=== PATIENT | female | born 1945 | race Hispanic/Latino ===

== ENCOUNTER 2017-03-23 09:50 | Inpatient (IN) | payer MEDICARE, MEDICAID ==
--- NOTE | 2017-03-23 10:36 | CT ---
CT BRAIN NONCONTRAST: HISTORY: A 71-year-old female with left lower extremity weakness and left upper extremity hypesthesia. FINDINGS: There is no midline shift or any other mass effect. There is no evidence of acute intracranial hemor rhage, large cortical infarct, obstructive hydrocephalus, or extraaxial fluid collection. The calvar ium is intact. There is a well-circumscribed, approximately 2 x 1.5 cm cystic structure at the infer ior aspect of the left basal ganglia, consistent with a dilated Virchow-Michael perivascular space. IMPRESSION: No acute intracranial findings. daniel mon POS: FITO
[2017-03-23 10:41] LABS: #Basophils 0.1 thou/uL (0.0-0.2); #Eosinphils 0.2 thou/uL (0.0-0.7); #Lymphocytes 1.8 thou/uL (1.20-3.40); #Monocytes 0.4 thou/uL (0.11-0.59); #Neutrophils 2.9 thou/uL (1.40-6.50); %Eosinophils 3.1 % (0.0-10.0); %Lymphocytes 33.3 % (21.0-51.0); %Monocytes 7.4 % (0.0-10.0); Hematocrit 44.3 % (36.0-47.0); Mean Platelet Volume 6.5 fL (7.4-10.4); Red Blood Cell (RBC) Count 4.53 mill/uL (4.20-5.40); White Blood Cell (WBC) Count 5.3 thou/uL (4.8-10.8)
[2017-03-23 10:48] LABS: Prothrombin Time 12.9 SEC (12.0-14.7)
[2017-03-23 11:03] LABS: ALT (SGPT) 12 U/L (8-55); AST (SGOT) 12 U/L (5-34); Alkaline Phosphatase 77 U/L (40-150); Anion Gap 11 mmol/L (10-20); BUN (Urea Nitrogen) 18 mg/dL (9.8-20.1); Bilirubin, Total 0.5 mg/dL (0.2-1.2); Calc. Creatinine Clearance 0 mL/min (70-130); Calcium 9.5 mg/dL (7.8-10.44); Carbon Dioxide 27 mmol/L (23-31); Chloride 105 mmol/L (98-107); Estimated GFR-MDRD 73; Globulin 3.5 g/dL (2.4-3.5); Protein, Total 7.7 g/dL (6.0-8.3)
[2017-03-23 11:07] LABS: Troponin I Less than 0.010 ng/mL (< 0.028)
--- NOTE | 2017-03-23 11:08 | RAD ---
RADIOGRAPH CHEST 1 VIEW: HISTORY: A 71-year-old female with weakness for 2 days. FINDINGS: The thoracic aorta is tortuous and ectatic. There is no evidence of air space density, pneumothorax, or pulmonary edema. The lateral costophrenic angles are sharp. IMPRESSION: 1) No acute pulmonary findings. 2) Ectasia of thoracic aorta. daniel [] POS: REBECA
[2017-03-23] MEDS ORDERED: Dextrose 50% Abboject 50 ML SYRINGE SLOW IVP PRN (14:40)
[2017-03-23] MEDS ORDERED: Dextrose 5% in Water 1,000 ML IV PRN (14:40)
[2017-03-23] MEDS ORDERED: Calcium Carbonate 500 MG ChewTAB PO PRN (14:40)
[2017-03-23] MEDS ORDERED: hydrALAZINE 20 MG/ML VIAL SLOW IVP PRN (14:40)
[2017-03-23] MEDS ORDERED: HYDROcodone/Acetaminophen 5/325 mg Tablet PO PRN (14:40)
[2017-03-23] MEDS ORDERED: Ondansetron HCl/PF 4 MG/2 ML Vial IVP PRN (14:40)
--- NOTE | 2017-03-23 14:56 | MRI ---
MRI CERVICAL SPINE NONCONTRAST: DATE: 03/23/17. HISTORY: A 71-year-old female with bilateral lower extremity weakness and hypesthesia of the left hand and dig its (left cervical radiculopathy). COMPARISON: None. FINDINGS: All of the images are degraded by patient motion. Many sequences were repeated, but there is motion artifact on the repeated sequences also. There is no Chiari-I malformation. The cervical spinal can al is diffusely small on a developmental basis due to congenitally short pedicles. This is exacerbat ed by mild degenerative changes. Vertebral body heights are maintained. Bone marrow signal is hermilo l. The cervical spinal cord is normal in size and signal. No severe disk space narrowing at any lev el. There is mild disk space narrowing at C5-6. The rest of the disk spaces are maintained. Modera te degenerative facet changes on the right at C3-4 and C4-5. Mild degenerative facet changes elsewhe re bilaterally. C1-2: Mild central spinal canal stenosis entirely on a developmental basis. C2-3: Mild to moderate central spinal canal stenosis almost entirely on a developmental basis. No r ight-sided neural foraminal stenosis. Moderate left neural foraminal stenosis. C3-4: Minimal broad-based disk-osteophytic bar complex encroaches upon the spinal canal, slightly ex acerbating the developmentally small caliber spinal canal. Moderate central spinal canal stenosis. Moderate to severe bilateral neural foraminal stenosis. C4-5: Ligamentum flavum thickening. Minimal disk-osteophytic bar complex. Moderate central spinal canal stenosis. Moderate to severe bilateral neural foraminal stenosis. C5-6: Broad-based disk-osteophytic bar complex indents the ventral aspect of the spinal cord. Ligam entum flavum thickening indents the dorsal surface of the spinal cord. Overall severe central spinal canal stenosis. Bilateral uncinate process osteophytes cause severe right neural foraminal stenosis and moderate to severe left neural foraminal stenosis. C6-7: Moderate to severe central spinal canal stenosis mostly on a developmental basis plus ligament um flavum thickening. Mild cord indentation. Bilateral moderate neural foraminal stenosis. C7-T1: Little or no central stenosis. Mild bilateral neural foraminal stenosis. IMPRESSION: 1. Developmentally small caliber spinal canal exacerbated by mild cervical spondylosis. 2. facet osteoarthrosis on the right at upper levels. 3. Multilevel high-grade bilateral neural foraminal stenosis and high-grade central spinal canal tommy nosis, worst at C5-6, where there is severe central stenosis, with mild chronic cord impingement. POS: FITO
[2017-03-23 15:26] VITALS: BMI 29.9
--- NOTE | 2017-03-23 15:39 | MRI ---
MRI LUMBAR SPINE NONCONTRAST: DATE: 03/23/17. HISTORY: A 71-year-old female with left lower extremity weakness for 2 days. COMPARISON: None. FINDINGS: Images are degraded by patient motion. The vertebral body height are maintained. There is no bone m arrow edema. There are 5 lumbar-type vertebrae. Conus medullaris terminates at L1-2. Mild disk spa ce narrowing at L4-5. No severe disk space narrowing at any level. Cauda equina is arranged in a sy mmetrical, normal distribution throughout the thecal sac. Perivertebral spaces demonstrate no major abnormality. T12-L1: Slight degenerative retrolisthesis of T12 on L1 with minimal disk bulge. No significant carrillo tral stenosis or high-grade neural foraminal stenosis. L1-2: Minimal disk bulge. No central stenosis or high-grade neural foraminal stenosis. L2-3: Mild disk bulge. No high-grade central stenosis or high-grade neural foraminal stenosis. L3-4: Bilateral mild to moderate degenerative facet disease causes a minimal grade I anterolisthesis of L3 on L4. Mild diffuse disk bulge. All of these changes result in a moderate degree of spinal c anal stenosis, moderate thecal sac stenosis, and bilateral mild to moderate neural foraminal stenosis . L4-5: Severe bilateral degenerative facet disease results in a more prominent grade I anterolisthesi s of L4 on L5 (compared to L3-4). Diffuse disk bulge. Facet hypertrophy and ligamentum flavum thick ening. All of these changes result in severe central spinal canal stenosis, and moderate bilateral n eural foraminal stenosis. L5-S1: Severe bilateral degenerative facet disease. Mild grade I anterolisthesis of L5 on S1. No s ignificant neural foraminal stenosis or central spinal canal stenosis. Mild disk bulge IMPRESSION: 1. Severe central spinal canal stenosis at L4-5 due to a combination of severe facet osteoarthrosis and grade I spondylolisthesis. 2. Severe facet osteoarthrosis at L5-S1 resulting in a mild grade I spondylolisthesis, without high- grade central stenosis or high-grade neural foraminal stenosis there. MICHELLE Sanchez POS: FITO
[2017-03-23] MEDS: HumaLOG 300 UNITS/3 ML VIAL SC PRN (17:27)
[2017-03-23 17:44] LABS: Bilirubin Negative (Negative); Blood, Urine Negative (Negative); Glucose, Urine (Dipstick) Negative (Negative); Ketone, Urine Negative (Negative); Nitrite Negative (Negative); Protein, Urine (Dipstick) Negative (Neg-Trace)
[2017-03-23 17:46] LABS: Bacteria/HPF 4+ HPF (None Seen); Hyaline Casts/LPF 0-3 HYALINE CAST LPF (0-3 Hyaline); RBC/HPF 0-3 HPF (0-3); Squamous Epithelial 0-3 HPF (0-3)
[2017-03-23 17:53] LABS: Amphetamine Not Detected (NotDetected); Methadone Not Detected (NotDetected); Methamphetamine Not Detected (NotDetected)
[2017-03-23] MEDS ORDERED: FLU VACC TS2017-18 (>65YR) 0.5 ML SYRINGE IM ONE (18:00)
--- NOTE | 2017-03-23 19:02 | ULT ---
CAROTID DUPLEX ULTRASOUND 03/23/17 INDICATION: Near syncope. FINDINGS: Peak systolic velocity within the common carotid and internal carotid arteries are within normal limi ts without evidence of hemodynamically significant stenosis. The right ICA/CCA ratio was 0.62 and th e left 0.97. Antegrade flow is seen in both vertebral arteries. There is intimal thickening seen invo lving both common carotid arteries and internal carotid arteries. IMPRESSION: No hemodynamically significant stenosis. POS: FITO
[2017-03-23] MEDS: Docusate 100 MG CAP PO SCH (20:35)
[2017-03-23] MEDS: Acetaminophen 325 MG TAB PO PRN (20:36)
--- NOTE | 2017-03-23 20:52 | HP ---
DATE OF ADMISSION: 03/23/2017 CHIEF COMPLAINT: Left lower extremity weakness and left hand numbness. BRIEF HOSPITAL COURSE: This is a 71-year-old pleasant lady who was apparently in usual state of heal th when she woke up 2 days back from the bed did not have any strength in the left leg and sort of le aned towards the left side. She did not have any fall, but she was concerned and hence she came into the hospital for further evaluation and treatment. She said that some power has gotten better on th e left leg, but she still cannot stand and walk and climb stairs. She also notes that her left thumb , index finger and middle finger all have some numbness. The patient did not have any fever, chills, any nausea or vomiting, any weakness of the face or any other injuries to the back. The patient crystal s not have any seizure-like disorders. No diarrhea or dysuria as well. The patient says that this h as never happened in the past and she has not taken any new medications and has been taking the stati n for a long time. She also says that she has been diagnosed as a diabetic only for 2 years. The darius chandler says there is no muscle tenderness or pain in the muscle. She is going to be admitted for furt her evaluation and treatment of this. PAST MEDICAL HISTORY: Significant for diabetes, hypertension and hyperlipidemia. PAST SURGICAL HISTORY: Left shoulder surgery. SOCIAL HISTORY: Does not smoke, drink or do recreational drugs. FAMILY HISTORY: Negative for diabetes and hypertension. MEDICATIONS: Please see MAR. ALLERGIES: No known drug allergies. REVIEW OF SYSTEMS: Significant for left leg weakness, left hand numbness of the thumb, forefinger an d the middle finger. There is no fever, no chills, no headache, no appetite changes, no hearing loss , no latencies. No cough, no chest pain. No diarrhea, dysuria or polyuria. No memory or mood berman es. No neck pain. PHYSICAL EXAMINATION: VITAL SIGNS: Blood pressure is 157/97, afebrile, breathing comfortably on room air with a pulse of 6 8. GENERAL: The patient is lying in bed, in no apparent distress. HEENT: Atraumatic, normocephalic. Pupils equally round and reactive to light. Extraocular movement s intact. Mucous membranes moist. NECK: Supple. No JVD. CHEST: Breath sounds heard. There are no rales or rhonchi. HEART: S1, S2. No murmurs or gallops. ABDOMEN: Soft. EXTREMITIES: No cyanosis, clubbing or edema. Distal pulses present. NEUROLOGIC: Alert, awake and oriented. No cranial deficits. No sensorimotor deficits except for mu scle weakness of the left leg. It is about 4/5 in the left leg and 5/5 in the right leg. Reflexes a re present. Hand examination shows decreased sensation in the third, fourth and fifth digits. No cr anial nerve deficits. SKIN: Warm and dry. LABORATORY DATA: EKG shows normal sinus rhythm at 73 per minute. WBC count is 5.3, hemoglobin is 14 . Potassium is 4.7, creatinine is 0.7. Troponin is negative. ASSESSMENT AND PLAN: 1. Left leg weakness, more proximal than distal. We will check CK, ESR, CRP, MRI of the brain, C-sp ine, lumbar spine and we will get Neurology consult. We will also check thyroid, TSH. The patient's muscle weakness is not associated with any muscle tenderness. We will follow the labs and do the ne edful. 2. Left hand numbness in the third, fourth and fifth digits. We will check for MRI. We will follow MRI results. There is no wasting and there is no motor weakness in the hand though. 3. Diabetes mellitus. We will put her on insulin sliding scale. 4. Hypertension. We will continue home medications and give p.r.n. medications as well. 5. Hyperlipidemia. We will hold statins for now. 6. Sequential compression devices for deep venous thrombosis prophylaxis. I will work with Neurology in further caring for the patient.
[2017-03-24 06:03] LABS: Anion Gap 11 mmol/L (10-20); BUN (Urea Nitrogen) 22 mg/dL (9.8-20.1); Calc. Creatinine Clearance 79 mL/min (70-130); Calcium 9.4 mg/dL (7.8-10.44); Carbon Dioxide 24 mmol/L (23-31); Chloride 105 mmol/L (98-107); Cholesterol 192 mg/dl (< 200 Desired); Estimated GFR-MDRD 78; LDL Cholesterol, Calculated 122 mg/dL
[2017-03-24] MEDS: Docusate 100 MG CAP PO SCH ×2 (09:22→20:58)
[2017-03-24] MEDS: Aspirin 81 mg Enteric Coated Tablet PO SCH (09:22)
[2017-03-24] MEDS: Lisinopril 10 MG TAB PO SCH (09:22)
[2017-03-24] MEDS: HumaLOG 300 UNITS/3 ML VIAL SC PRN ×2 (10:47→17:11)
--- NOTE | 2017-03-24 12:07 | MRI ---
MRI BRAIN NONCONTRAST: DATE: 03/24/17. HISTORY: A 71-year-old female with acute stroke symptoms. Left lower extremity weakness for 2 days. COMPARISON: No prior MRIs of the brain. FINDINGS: There is a 0.8 x 0.4 cm T2 moderately T2-hyperintense and FLAIR-hyperintense lesion at the junction b etween the right thalamus and the posterior limb of the right internal capsule. This lesion exhibits restricted diffusion, indicating that it is a subacute or acute infarction. There are no other foci of restricted diffusion elsewhere in the brain. Incidentally, there is an approximately 1.6 x 1.7 x 1.4 cm well-circumscribed structure at the inferi or aspect of the left basal ganglia, which follows CSF signal intensity on all pulse sequences, repre senting a dilated Virchow-Michael perivascular space. This should not be mistaken for an old lacunar i nfarction. There is a tiny focus of hyperintensity, a few millimeters in size, in the anterior aspect of the lef t basal ganglia (FLAIR axial image of , series 4), consistent with a tiny old lacunar infarction . The ventricles are normal in size and configuration. No evidence of recent or remote intraaxial h emorrhage. No mass effect, midline shift, or extraaxial fluid collection. IMPRESSION: Acute or subacute small lacunar infarction at the junction between the right thalamus and posterior l imb of right internal capsule. MICHELLE Sanchez POS: FITO
--- NOTE | 2017-03-24 14:43 | CON ---
DATE OF CONSULTATION: 03/24/2017 HISTORY OF PRESENT ILLNESS: The patient is a 71-year-old female with a past medical history of diabetes, hypertension, hyperlipidemia, who presented to the hospital for evaluation of left leg weakness and left arm numbness. She also reports tingling along the left side of the face. Denies slurred speech, confusion, or other associated symptoms. She reports that symptoms began 2 days ago and have been constant since. She is having difficulty walking with the left leg secondary to weakness. She has had intermittent back and neck pain over the years but nothing particularly bothersome at this time. She was evaluated in the emergency department with noncontrast CT of the head, which was negative for any acute findings. She was admitted to the medical service for further evaluation of these symptoms. During her admission, MRI of the brain, cervical, lumbar and spine were done. MRI of the cervical spine was notable for degenerative disk disease and moderate central canal stenosis most increased over C5-C6. Lumbar MRI is also notable for lumbar stenosis with central canal stenosis, mostly increased over L4-L5. Brain MRI was notable for small lacunar infarction, acute versus subacute between the right thalamus and the posterior limb of the right internal capsule. The Neurosurgery Service was consulted for a further evaluation of the patient's symptoms and underlying cervical and lumbar stenosis. PAST MEDICAL HISTORY: Hypertension, hyperlipidemia, diabetes. PAST SURGICAL HISTORY: Left shoulder surgery. SOCIAL HISTORY: The patient does not smoke, drink or use any drugs. FAMILY HISTORY: Noncontributory. ALLERGIES: The patient has no known drug allergies. REVIEW OF SYSTEMS: Per HPI. PHYSICAL EXAMINATION: CONSTITUTIONAL: No acute distress. HEENT: Normocephalic, atraumatic. EYES: PERRLA. Extraocular movements are intact. Sclerae are white. ENT: Voice is normal and clear. Oral mucosa are intact. CARDIAC: Regular rate and rhythm. LUNGS: Breathing comfortable. Regular rate. MUSCULOSKELETAL: The patient has good muscle tone to bilateral upper and lower extremities. She has decrease strength over the left upper extremity and left lower extremity 4/5 when compared to the right, 5/5. No reflex asymmetry. NEUROLOGIC: The patient is AO x4. She has weakness to the left upper extremity and left lower extremity 4/5 when compared to the right side, which is 5/5 throughout. No cranial nerve deficits are appreciated. Negative Hou 's, negative clonus. No limb ataxia with agyoee-ct-mjta or nyrs-io-egud. ASSESSMENT: 1. Left-sided weakness with infarction seen on brain MRI at the right thalamus and posterior limb of the right internal capsule. 2. Cervical stenosis, lumbar stenosis. PLAN: Lumbar and cervical MRI are notable for cervical stenosis most increased C5-C6 and lumbar stenosis most increased L4-L5. The patient has some numbness and tingling in the left C6 pattern and this may be related to her cervical disease; however, acute onset left side weakness of left upper extremity, left lower extremity had numbness and tingling on the face are more likely related to the patient's new infarct. I will discuss the imaging with Dr. Ruiz. He is in agreement. We will plan to see the pateint for repeat evaluation of the spine in 4wks as outpatient. I will arrange and have the office call the family for appointment. MUNIRA
--- NOTE | 2017-03-24 14:54 | PDOC.PN ---
- Subjective Encounter Start Date: 03/24/17 Encounter Start Time: 14:51 Patient seen and examined. No new complaints. No overnight events - Objective MAR Reviewed: Yes Vital Signs & Weight: Vital Signs (12 hours) Temp Pulse Resp BP BP Pulse Ox 03/24/17 11:15 98.7 F 98 18 128/70 95 03/24/17 09:22 159/78 H 03/24/17 07:33 98.6 F 87 16 159/78 H 97 03/24/17 07:20 98.4 F 74 16 03/24/17 04:01 98.4 F 74 16 144/63 H 98 Weight Weight 156 lb 3.2 oz I&O: 03/23/17 03/24/17 03/25/17 06:59 06:59 06:59 Intake Total 300 Balance 300 Result Diagrams: 03/23/17 10:28 03/24/17 05:26 Additional Labs: Accuchecks 03/24/17 03/24/17 03/23/17 10:32 06:22 21:16 POC Glucose 177 H 143 H 160 H 03/23/17 17:01 POC Glucose 200 H Phys Exam - Physical Examination Constitutional: NAD HEENT: PERRLA Neck: no JVD Respiratory: no wheezing Cardiovascular: no significant murmur Gastrointestinal: non-tender Musculoskeletal: pulses present weakness of lt leg Psychiatric: A&O x 3 Dx/Plan (1) CVA (cerebral vascular accident) Code(s): I63.9 - CEREBRAL INFARCTION, UNSPECIFIED Status: Acute (2) Spinal stenosis Code(s): M48.00 - SPINAL STENOSIS, SITE UNSPECIFIED Status: Acute (3) Diabetes mellitus Code(s): E11.9 - TYPE 2 DIABETES MELLITUS WITHOUT COMPLICATIONS Status: Acute (4) HTN (hypertension) Code(s): I10 - ESSENTIAL (PRIMARY) HYPERTENSION Status: Acute (5) Hyperlipidemia Code(s): E78.5 - HYPERLIPIDEMIA, UNSPECIFIED Status: Acute - Plan * asp, statin, tight control of dm and htn * f/u nsx and neurology plan
[2017-03-24] MEDS: guaiFENesin/Codeine Phosphate 200 mg/20 mg 10 ml UD Cup PO PRN (20:58)
[2017-03-24] MEDS: Acetaminophen 325 MG TAB PO PRN (20:58)
[2017-03-24] MEDS: Atorvastatin Calcium 40 MG TAB PO SCH (20:58)
[2017-03-25] MEDS: Acetaminophen 325 MG TAB PO PRN (05:29)
[2017-03-25] MEDS: guaiFENesin/Codeine Phosphate 200 mg/20 mg 10 ml UD Cup PO PRN (05:29)
[2017-03-25] MEDS: Docusate 100 MG CAP PO SCH ×2 (09:12→21:31)
[2017-03-25] MEDS: Lisinopril 10 MG TAB PO SCH (09:12)
[2017-03-25] MEDS: Aspirin 81 mg Enteric Coated Tablet PO SCH (09:12)
--- NOTE | 2017-03-25 11:44 | PQF ---
DATE: 03-25-17 ATTN : DR. KAYLEE SWARTZ Please exercise your independent, professional judgment in responding to the clarification form. Clinical indicators are provided on the bottom of this form for your review Please check appropriate box(s): [ ] UTI UTI Site: [ ] Kidney [ ] Ureter [ ] Bladder [ ] Urethra [ ] Unable to determine Specify Organism (if known): [ ] Unknown organism [ ] Contaminated urine specimen without UTI [ ] Other diagnosis [* ] Unable to determine In addition, please specify: Present on Admission (POA): [ * ] Yes [ ] No [ ] Unable to determine For continuity of documentation, please document condition throughout progress notes and discharge summary. Thank You. CLINICAL INDICATORS - SIGNS / SYMPTOMS / LABS LABS: URINE 03-23-17: UR LEUKOCYTE ESTERASE MODERATE H URINE WBC 4 -10 H URINE BACTERIA +4 H TEMP: 03-25-17: 99.7 RISK FACTORS: H&P: HX OF DM, HTN, HYPERLIPIDEMIA, WEAKNESS, IN WITH CVA TREATMENT: MICROBIOLOGY 03-24-17: URINE CULTURE (This form is maintained as a part of the permanent medical record) 2014 [employer] All Rights Reserved [email or web address] Office: [phone] MUNIRA
[2017-03-25] MEDS: HumaLOG 300 UNITS/3 ML VIAL SC PRN (11:51)
--- NOTE | 2017-03-25 16:53 | PDOC.PN ---
- Subjective Encounter Start Date: 03/25/17 Encounter Start Time: 16:52 Patient seen and examined. No new complaints. No overnight events - Objective MAR Reviewed: Yes Vital Signs & Weight: Vital Signs (12 hours) Temp Pulse Pulse Pulse Resp BP BP 03/25/17 15:18 98.6 F 86 16 03/25/17 11:21 88 84 138/74 03/25/17 11:15 98.3 F 96 16 03/25/17 09:12 159/78 H 03/25/17 08:30 84 84 114/59 L 03/25/17 07:23 99 F 83 16 03/25/17 07:20 99.7 F H 95 16 BP BP Pulse Ox 03/25/17 15:18 115/57 L 93 L 03/25/17 11:21 135/73 03/25/17 11:15 127/68 98 03/25/17 09:12 03/25/17 08:30 135/73 03/25/17 07:23 96/57 L 97 03/25/17 07:20 Weight Weight 156 lb 8 oz I&O: 03/24/17 03/25/17 03/26/17 06:59 06:59 06:59 Intake Total 300 Balance 300 Result Diagrams: 03/23/17 10:28 03/24/17 05:26 Additional Labs: Accuchecks 03/25/17 03/25/17 03/24/17 10:48 05:55 21:32 POC Glucose 217 H 164 H 157 H 03/24/17 16:57 POC Glucose 184 H Phys Exam - Physical Examination Constitutional: NAD HEENT: PERRLA Neck: no JVD Respiratory: no wheezing Cardiovascular: no significant murmur Gastrointestinal: non-tender Musculoskeletal: pulses present Neurological: moves all 4 limbs Psychiatric: A&O x 3 Dx/Plan (1) CVA (cerebral vascular accident) Code(s): I63.9 - CEREBRAL INFARCTION, UNSPECIFIED Status: Acute (2) Spinal stenosis Code(s): M48.00 - SPINAL STENOSIS, SITE UNSPECIFIED Status: Acute (3) Diabetes mellitus Code(s): E11.9 - TYPE 2 DIABETES MELLITUS WITHOUT COMPLICATIONS Status: Acute (4) HTN (hypertension) Code(s): I10 - ESSENTIAL (PRIMARY) HYPERTENSION Status: Acute (5) Hyperlipidemia Code(s): E78.5 - HYPERLIPIDEMIA, UNSPECIFIED Status: Acute - Plan * f/u urine culture * f/u neuro rec's * d/c to [facility] in [place]
[2017-03-25] MEDS ORDERED: cefTRIAXone\\ROCEPHIN 1 GM, Syringe 0.4 ML in Sterile Water 9.6 ML SLOW IVP SCH ×2 (20:00→20:30)
[2017-03-25] MEDS: Atorvastatin Calcium 40 MG TAB PO SCH (21:43)
--- NOTE | 2017-03-25 23:28 | CON ---
DATE OF CONSULTATION: 03/25/2017 REFERRING PROVIDER: Nicole Kelsey MD REASON FOR CONSULTATION: Left lower extremity weakness. HISTORY OF PRESENT ILLNESS: Ms. Abdul is a pleasant 72-year-old female who has been cons ulted for evaluation of left lower extremity weakness. History is obtained from patient's family mem bers who acts as dry kiln burner during my interview. According to the family member, patient had woke up on Saturday and noticed that her left leg was weak. She was having difficulty with holding her weig ht, she had to hold onto things to walk. She did not have any headache, chest pain, palpitation, jeff sea, vomiting, abdominal pain, lightheadedness, or dizziness. She did not have any weakness in the r ight lower extremity or bilateral upper extremity. She did not have any numbness in all 4 extremitie s. She did not have any neck pain or back pain. As his symptoms were not improving, they decided to present to the [facility]. PAST MEDICAL HISTORY: Significant for hypertension, diabetes, hyperlipidemia. PAST SURGICAL HISTORY: Significant for left shoulder surgery. SOCIAL HISTORY: She denies smoking, alcohol use, or illicit drug use. FAMILY HISTORY: Noncontributory. CURRENT MEDICATIONS: Please review MAR. ALLERGIES: No known drug allergies. REVIEW OF SYSTEMS: As mentioned in the HPI, otherwise negative. PHYSICAL EXAMINATION: VITAL SIGNS: Blood pressure of 137/65, pulse of 107, temperature of 100, respirations of 16, O2 sats of 97% on room air. GENERAL: Well-developed, well-nourished female in no apparent distress. RESPIRATORY: Clear to auscultation bilaterally. CARDIOVASCULAR: Regular rate and rhythm. NEUROLOGIC: Mental status: The patient is awake, alert, oriented x3. Speech and language: Fluent speech. Cranial nerves: Pupils are 3 mm and reactive. Visual reid are intact. External muscles are intact. No nystagmus is noted. Face is symmetric. Tongue and uvula midline. Motor exam showed normal tone and bulk with 5/5 strength in both upper extremities and right lower extremity. Her str ength in the left lower extremity is 4/5 proximally and 5/5 distally. Sensory: Sensation is intact and symmetric. Deep tendon reflexes 1+ reflex in both upper and lower extremities. Babinski: Plant ar responses flexion bilaterally. Coordination intact to [id number]-[id number] and finger tapping bilat erally. LABORATORY DATA: Reviewed, which included CBC, sed rate, CMP, lipid profile, CRP, CPK, CK-MB, tropon in, homocysteine level, urinalysis, urine drug screen, rheumatoid factor, and RPR, which is significa nt for glucose of 140, total cholesterol 192, triglycerides of 183, LDL of 122, HDL of 33. Urinalysi s showed moderate leukocyte esterase with 4+ bacteria and 7-10 WBC, otherwise negative. IMAGING STUDIES: MRI brain without contrast was reviewed, which showed small right thalamic and post erior limb of internal capsule ischemic infarct. Carotid Dopplers showed no extracranial vascular ab normality. Echocardiogram results were reviewed, which showed EF of 55-60% with mild mitral regurgit ation and tricuspid regurgitation, otherwise unremarkable. IMPRESSION: 1. Acute right basal ganglia ischemic infarct. 2. Hypertension. 3. Diabetes. 4. Hyperlipidemia. Ms. Abdul is a pleasant 72-year-old female who presented with sudden onset of left lower extremity weakness. Her MRI brain does show an acute infarct involving the right thalamus and trumpet player ior limb of internal capsule. The location of the stroke is likely indicative of hypertension and di abetes is the most likely cause for the stroke. At this time, I will recommend starting patient on a spirin 325 mg daily for secondary stroke prevention. The patient is to continue on PT, OT. She may need inpatient rehabilitation. She is okay to be discharged to the rehabilitation facility when medi horacio ready. Thank you for your consultation.
[2017-03-26 07:47] VITALS: TEMP 99.2
[2017-03-26] MEDS: Docusate 100 MG CAP PO SCH (08:15)
[2017-03-26] MEDS: Lisinopril 10 MG TAB PO SCH (08:15)
[2017-03-26] MEDS ORDERED: Aspirin 325 mg Enteric Coated Tablet PO SCH (09:00)
--- NOTE | 2017-03-26 10:46 | PDOC.PN ---
- Subjective Encounter Start Date: 03/26/17 Encounter Start Time: 10:45 Patient seen and examined. No new complaints. No overnight events - Objective MAR Reviewed: Yes Vital Signs & Weight: Vital Signs (12 hours) Temp Pulse Resp BP BP Pulse Ox 03/26/17 08:15 159/78 H 03/26/17 07:58 99.2 F 86 16 03/26/17 07:15 99.2 F 86 16 119/64 96 03/26/17 03:21 98.3 F 85 18 121/58 L 95 Weight Weight 155 lb 3.2 oz I&O: 03/25/17 03/26/17 03/27/17 06:59 06:59 06:59 Intake Total 300 480 Balance 300 480 Result Diagrams: 03/23/17 10:28 03/24/17 05:26 Additional Labs: Accuchecks 03/26/17 03/25/17 03/25/17 05:48 20:42 16:51 POC Glucose 164 H 144 H 121 H 03/25/17 10:48 POC Glucose 217 H Phys Exam - Physical Examination Constitutional: NAD HEENT: PERRLA Neck: no JVD Respiratory: no wheezing Cardiovascular: no significant murmur Musculoskeletal: pulses present left thigh weak, 4/5 Psychiatric: A&O x 3 Dx/Plan (1) CVA (cerebral vascular accident) Code(s): I63.9 - CEREBRAL INFARCTION, UNSPECIFIED Status: Acute (2) Spinal stenosis Code(s): M48.00 - SPINAL STENOSIS, SITE UNSPECIFIED Status: Acute (3) Diabetes mellitus Code(s): E11.9 - TYPE 2 DIABETES MELLITUS WITHOUT COMPLICATIONS Status: Acute (4) HTN (hypertension) Code(s): I10 - ESSENTIAL (PRIMARY) HYPERTENSION Status: Acute (5) Hyperlipidemia Code(s): E78.5 - HYPERLIPIDEMIA, UNSPECIFIED Status: Acute (6) UTI (urinary tract infection) Status: Acute - Plan * change abx to omnicef * cont asp and statin * tight control of risk factors * d/c to [facility] for rehab
[2017-03-26 11:42] VITALS: BP 137/69
--- NOTE | 2017-03-26 13:45 | DIS ---
DATE OF ADMISSION: 03/23/2017 DATE OF DISCHARGE: 03/26/2017 DISCHARGE DIAGNOSES: Cerebrovascular accident secondary to acute right basal ganglia ischemic infarc t, hypertension, diabetes, hyperlipidemia, urinary tract infection and cervical spinal stenosis. STUDIES DONE THIS HOSPITAL STAY: An MRI which showed the right thalamic and posterior limb of intern retail al capsule ischemic infarct. Carotid Doppler showed no extracranial vascular abnormality. An echoca rdiogram which showed an ejection fraction of 55%, with mild mitral regurgitation and tricuspid regur gitation. CONSULTANTS ON THE CASE: Neurology and Neurosurgery for cervical stenosis and lumbar stenosis. BRIEF HOSPITAL COURSE: This is a 72-year-old pleasant lady who came into the hospital with left lowe r extremity weakness and some tingling and numbness in the left hand. Please refer to my H&P for fur ther details. The patient was worked up for CVA and the MRI results as said before showed acute righ t basal ganglia ischemic infarct. The patient actually did well this hospital stay. Her diabetes an d hypertension were well under control. The patient did well with physical therapy. She was on aspi rin and statins and good control of the diabetes and blood pressure have been achieved. She is right now medically stable to be discharged to [facility]. She was seen by Neurology who agreed with thi s plan. She was also seen by Neurosurgery for spinal stenosis and they recommend outpatient follow u p with them. The patient is right now medically stable to be discharged with outpatient follow up [facility] PCP, Neurology and Neurosurgery after her rehabilitation. She is asked to come back to the emerge ncy room in case symptoms recur. Total time for this discharge took 35 minutes.
--- NOTE | 2017-03-26 16:56 | ADD-DIS ---
ADDENDUM DISCHARGE MEDICATIONS: Include aspirin 325 p.o. daily, Lipitor 40 mg p.o. daily, Omnicef 300 p.o. b. i.d. for 4 days, lisinopril 10 mg p.o. daily and metformin 500 p.o. b.i.d. Urinary tract infection was present at the time of admission, it grew E. coli sensitive to cephalospo rins. She was initially treated with IV Rocephin and transitioned to Omnicef. She is doing much bet ter. She is medically stable to be discharged at this point.
[2017-03-26] MEDS ORDERED: cefTRIAXone\\ROCEPHIN 1 GM, Syringe 0.4 ML in Sterile Water 9.6 ML SLOW IVP SCH (20:00)
--- NOTE | 2017-04-19 13:26 | EKG ---
Test Reason : Blood Pressure : / mmHG Vent. Rate : 073 BPM Atrial Rate : 073 BPM P-R Int : 160 ms QRS Dur : 078 ms QT Int : 376 ms P-R-T Axes : 051 -43 013 degrees QTc Int : 414 ms Normal sinus rhythm Left axis deviation Abnormal ECG Confirmed by CHAO WEN ([id number]), copy editor VIDYA FLORENCE ([id number]) on 04/19/2017 1:26:08 PM Referred By: Confirmed By:CHAO WEN
== END 2017-03-26 11:44 | DRG 65 ==
LOC: ERS 09:50 → OBSVTOIN 14:09 → 2SE 14:09
PROVIDERS: ADMIT Internal Medicine; ATTEND Internal Medicine
PROC: B030ZZZ Magnetic Resonance Imaging (MRI) of Brain (ICD-10-PCS; principal; 2017-03-24)
DX: I63.9 Cerebral infarction, unspecified (principal); N39.0 Urinary tract infection, site not specified; E11.9 Type 2 diabetes mellitus without complications; I08.1 Rheumatic disorders of both mitral and tricuspid valves; I10 Essential (primary) hypertension; B96.20 Unspecified Escherichia coli [E. coli] as the cause of diseases classified elsewhere; G83.14 Monoplegia of lower limb affecting left nondominant side; E78.5 Hyperlipidemia, unspecified; N88.2 Stricture and stenosis of cervix uteri
CPT/HCPCS: 36415; 36416; 70450; 70551; 71010; 72141; 72148; 80048; 80053; 80061; 80306; 81001; 82550; 82553; 83090; 84484; 85025; 85610; 85652; 86038; 86140; 86430; 86780; 87077; 87086; 87186; 90471; 90682; 90732; 93005; 93306; 93880; A4216; G0008; G0009; G8978-GP-CK; G8979-GP-CI; G8987-GO-CK; G8988-GO-CI; G8996-GN-CH; G8997-GN-CH; J0696; Q2036

== ENCOUNTER 2019-05-01 15:12 | Outpatient (CLI) | payer MEDICARE, MEDICAID ==
--- NOTE | 2019-05-01 16:46 | MRI ---
Cervical spine MRI without contrast: 05/01/2019 COMPARISON: 03/23/2017 HISTORY: Cervical radiculopathy, neck pain radiating into the right shoulder TECHNIQUE: Multiplanar multisequence MR imaging of the cervical spine without contrast FINDINGS: There is mild degenerative change at the atlantoaxial interspace. The craniocervical juncti on and cervicothoracic junction appear intact. Sagittal STIR imaging demonstrates no focal area of osseous marrow edema. C2-3: No central canal or neural foraminal stenosis. C3-4: Minimal disc bulge with no central canal stenosis. Facet and uncovertebral osteophyte formation noted bilaterally, right greater than left. Moderate right neural foraminal stenosis. No significant left neural foraminal stenosis. C4-5: Minimal disc bulge with no associated central canal stenosis. Bilateral facet and uncovertebral osteophyte formation, right greater than left. Mild left and moderate right neural foraminal stenosis. C5-6: Mild disc bulge with mild/moderate central canal stenosis. Bilateral facet and uncovertebral os teophyte formation noted with mild bilateral neural foraminal stenosis. C6-7: No significant central canal or neural foraminal stenosis C7-T1: Mild bilateral facet hypertrophy. No significant central canal or neural foraminal stenosis. There is no focal abnormal signal intensity identified within the cervical cord. IMPRESSION: Cervical spine degenerative change as detailed above, with the most significant findings involving the neural foramina on the right.
--- NOTE | 2019-05-01 18:01 | MRI ---
MR of the right shoulder without contrast INDICATION: Right shoulder pain. History of right shoulder rotator cuff repair 15 years ago with nec k pain and right shoulder pain for 6 months TECHNIQUE: Sagittal T1, axial and coronal PD fat sat, sagittal and coronal T2 fat sat images were obt ained of the right shoulder. COMPARISON: None. FINDINGS: Motion artifact limits image detail. Rotator cuff: Extensive susceptibility artifact along the supraspinatus and infraspinatus limits imag e detail of both tendons. No large discrete focal thickness tear is evident. There is mild tendinosis of the subscapularis. There is mild muscular atrophy of the supraspinatus, infraspinatus a nd teres minor musculature. No overt deltoid muscular atrophy is evident. Subscapularis appears normal. Glenohumeral joint: There is diffuse moderate chondrosis Glenoid labrum: Intact Biceps tendon and biceps anchor: Intact and located. Acromion clavicular joint: There is postprocedural change of a prior acromioplasty. There is mild AC joint osteoarthrosis Subacromial subdeltoid space: No appreciable fluid. Axillary region: No lymphadenopathy. Surrounding shoulder musculature: As above IMPRESSION: 1. No overt evidence of full-thickness rotator cuff tear. Prominent susceptibility artifact involving the supraspinatus and infraspinatus limits image detail of there respective tendons. Nonspecific mild muscular atrophy of the supraspinatus, infraspinatus and teres minor. Likely related to prior ro tator cuff pathology. 2. Mild subscapularis tendinosis. 3. Mild AC joint osteoarthrosis. 4. Mild glenohumeral chondrosis
== END 2019-05-01 15:13 | disposition home or self-care (01) ==
LOC: SCSMRI 15:12
PROVIDERS: ATTEND Orthopaedic Surgery
DX: M75.41 Impingement syndrome of right shoulder (principal); M47.22 Other spondylosis with radiculopathy, cervical region; M75.91 Shoulder lesion, unspecified, right shoulder; M75.81 Other shoulder lesions, right shoulder; M19.011 Primary osteoarthritis, right shoulder; M24.111 Other articular cartilage disorders, right shoulder; M47.812 Spondylosis without myelopathy or radiculopathy, cervical region; M48.02 Spinal stenosis, cervical region
CPT/HCPCS: 72141

== ENCOUNTER 2019-11-24 16:32 | Emergency (ER) | payer MEDICARE, MEDICAID ==
--- NOTE | 2019-11-24 16:54 | RAD ---
Exam: XR Shoulder Rt 3 View STANDARD HISTORY: COMPARISON: None FINDINGS: Single anchor screw overlies the right humeral head likely due to prior rotator cuff repair. Mild ost eoarthritis is seen involving the right acromioclavicular joint. No acute fracture, dislocation, or other acute osseous abnormality is identified. IMPRESSION: No acute osseous abnormality is identified.
--- NOTE | 2019-11-24 16:58 | CT ---
CT HEAD WITHOUT IV CONTRAST COMPARISON: 03/23/2017 HISTORY: Patient fell at home today. Patient complains of right shoulder and head pain. TECHNIQUE: Axial CT imaging at 5 mm intervals from vertex through skull base without contrast FINDINGS: A large dilated perivascular space is present in the inferior aspect left basal ganglia stable compar ed to prior exam. There is no evidence of an acute infarction, hemorrhage, mass effect, or midline shift. The ventricular system is normal in size, shape, and position. Visualized paranasal sinuses are clear. Osseous structures appear intact. IMPRESSION: 1. No acute intracranial abnormality demonstrated.
--- NOTE | 2019-11-24 17:01 | CT ---
CT CERVICAL SPINE NONCONTRAST: DATE: 11/24/2019 HISTORY: 74-year-old female status post acute cervical trauma from fall FINDINGS: There are no jumped or perched facets. There is no evidence of acute fracture. The vertebral body hei ghts are maintained. There is no prevertebral soft tissue swelling. There are multilevel bilateral facet osteoarthrosis, asymmetrically severe on the right side at several levels. There is moderate de generative disc disease at C5-6.. IMPRESSION: 1) Cervical spondylosis. 2) no evidence of acute fracture or acute traumatic subluxation.
== END 2019-11-24 18:35 | disposition home or self-care (01) ==
LOC: ERS 16:32
DX: S09.90XA Unspecified injury of head, initial encounter (principal); M25.511 Pain in right shoulder; E78.5 Hyperlipidemia, unspecified; E11.9 Type 2 diabetes mellitus without complications; I10 Essential (primary) hypertension; Z79.899 Other long term (current) drug therapy; Z79.84 Long term (current) use of oral hypoglycemic drugs; W19.XXXA Unspecified fall, initial encounter
CPT/HCPCS: 70450; 72125

== ENCOUNTER 2022-03-16 21:23 | Emergency (ER) | payer MEDICARE, MEDICAID | END 2022-03-16 22:30 | disposition home or self-care (01) | LOC: ERS 21:23 | DX: S09.90XA Unspecified injury of head, initial encounter (principal); I10 Essential (primary) hypertension; E11.9 Type 2 diabetes mellitus without complications; E78.5 Hyperlipidemia, unspecified; W06.XXXA Fall from bed, initial encounter | CPT/HCPCS: 70450; 96372 ==